=== PATIENT | female | born 1955 | race Two or more races ===

== ENCOUNTER 2018-01-30 13:21 | Outpatient (CLI) | payer OTHER ==
[~2018-01-30 13:21] MED LIST: ASPI-1169 PO; ATEN25TA PO; GABA800T3 PO; GEMF600T5 PO; HYDR25TA4 PO; LEVO88TA5 PO; LORA10TA7 PO; OMEP20CA10 PO; TOPI100T38 PO
[2018-01-30 13:29] VITALS: BP 141/84
== END 2018-01-30 23:59 | disposition home or self-care (01) ==
LOC: MSC 13:21
PROVIDERS: ATTEND Internal Medicine
DX: Z09 Encounter for follow-up examination after completed treatment for conditions other than malignant neoplasm (principal); Z90.89 Acquired absence of other organs; R74.0 Nonspecific elevation of levels of transaminase and lactic acid dehydrogenase [LDH]; E88.89 Other specified metabolic disorders; M79.7 Fibromyalgia; Z85.42 Personal history of malignant neoplasm of other parts of uterus